=== PATIENT | male | born 1945 | race Caucasian/White ===

== ENCOUNTER 2021-07-28 21:10 | Emergency (ER) | payer MEDICARE ==
[~2021-07-28 21:10] MED LIST: FLOMAX0.4 MG PO
[2021-07-28 21:52] LABS: BASOPHIL 0.3 % (0-2); EOSINOPHIL 0 % (0-7); HCT 47.1 % (42.0-52.0); HGB 14.9 g/dl (13.2-18.0); LYMPHOCYTE 6.5 % (15-48); MCH 29.5 pg (25.0-31.0); MCHC 31.6 g/dL (32.0-36.0); MCV 93.3 fL (78.0-100.0); MONOCYTE 7.9 % (0-12); MPV 9.7 fL (6.0-9.5); NEUTROPHIL 84.7 % (41-80); NRBC 0; PLT 371 K/uL (150-400); RBC 5.05 M/uL (4.70-6.00); RDW 14.6 % (11.5-14.0)
[2021-07-28 22:09] LABS: ALBUMIN 3.3 g/dL (3.4-5.0); BILIRUBIN - TOTAL 0.2 mg/dL (0.2-1.0); CREATININE 0.96 mg/dL (0.67-1.17); GLOBULIN (CALCULATION) 3.9 g/dL; POTASSIUM 4.6 mmol/L (3.5-5.1); TOTAL PROTEIN 7.2 g/dL (6.4-8.2)
[2021-07-28 22:10] LABS: LACTIC ACID 1.4 mmol/L (0.4-1.9)
[2021-07-28 22:29] LABS: CORONAVIRUS 2019 SARS-COV-2 NEGATIVE (NEGATIVE); INFLUENZA A NAA NEGATIVE (NEGATIVE)
== END 2021-07-29 01:10 | disposition other institution (70) ==
LOC: FER 21:10
PROVIDERS: Internal Medicine
DX: J44.1 Chronic obstructive pulmonary disease with (acute) exacerbation (principal); J96.01 Acute respiratory failure with hypoxia; I11.0 Hypertensive heart disease with heart failure; I50.9 Heart failure, unspecified; E78.5 Hyperlipidemia, unspecified; F17.210 Nicotine dependence, cigarettes, uncomplicated; Z20.822 Contact with and (suspected) exposure to COVID-19; Z88.8 Allergy status to other drugs, medicaments and biological substances; Z79.82 Long term (current) use of aspirin; Z79.899 Other long term (current) drug therapy
CPT/HCPCS: 36415; 36600; 71045; 80053; 82803; 83605; 83880; 84145; 85025; 87040; 94640; 94664; J2543; J2930; J7030; U0002

== ENCOUNTER 2022-04-08 02:03 | Emergency (ER) | payer MEDICARE ==
[2022-04-08 02:30] LABS: BASOPHIL 0.6 % (0-2); EOSINOPHIL 0.4 % (0-7); HCT 31.6 % (42.0-52.0); HGB 9.7 g/dl (13.2-18.0); LYMPHOCYTE 4.3 % (15-48); MCH 25.5 pg (25.0-31.0); MCHC 30.7 g/dL (32.0-36.0); MCV 83.2 fL (78.0-100.0); MONOCYTE 8.5 % (0-12); MPV 9.5 fL (6.0-9.5); NEUTROPHIL 85.7 % (41-80); NRBC 0; PLT 314 K/uL (150-400); RDW 17.2 % (11.5-14.0); WBC 9.8 K/uL (4.0-10.5)
[2022-04-08 02:50] LABS: ALBUMIN 2.6 g/dL (3.4-5.0); BILIRUBIN - TOTAL 0.4 mg/dL (0.2-1.0); BUN/CREAT RATIO (CALC) 19.7 RATIO; CREATININE 1.22 mg/dL (0.67-1.17); GLOBULIN (CALCULATION) 3.5 g/dL; POTASSIUM 4.4 mmol/L (3.5-5.1); TOTAL PROTEIN 6.1 g/dL (6.4-8.2)
[2022-04-08 02:57] LABS: LACTIC ACID 0.7 mmol/L (0.4-1.9)
[2022-04-08 03:10] LABS: CORONAVIRUS 2019 SARS-COV-2 NEGATIVE (NEGATIVE); INFLUENZA A NAA NEGATIVE (NEGATIVE)
[2022-04-08] MEDS ORDERED: ZPAK PO (06:22)
== END 2022-04-08 06:40 | disposition home or self-care (01) ==
LOC: FER 02:03
PROVIDERS: Emergency Medicine
DX: J44.1 Chronic obstructive pulmonary disease with (acute) exacerbation (principal); J44.0 Chronic obstructive pulmonary disease with (acute) lower respiratory infection; J18.9 Pneumonia, unspecified organism; Z88.8 Allergy status to other drugs, medicaments and biological substances; Z87.891 Personal history of nicotine dependence; Z20.822 Contact with and (suspected) exposure to COVID-19
CPT/HCPCS: 36415; 71045; 80053; 83605; 83880; 84484; 85025; 87040; 93005; 94640; 94664; J0692; J2930; J7030; U0002